=== PATIENT | male | born 1975 | race American Indian/Alaskan Native ===

== ENCOUNTER 2016-07-16 11:16 | Outpatient (CLI) | payer OTHER ==
[2016-07-16 11:52] LABS: BUN/Creatinine Ratio 13.07; Calcium 9.5 mg/dL (8.4-10.2); Chloride 100.1 mmol/L (98-107); Potassium 3.9 mmol/L (3.6-5.0)
== END 2016-07-16 11:17 | disposition home or self-care (01) ==
LOC: LAB 11:16
PROVIDERS: ATTEND Internal Medicine Nephrology
DX: I12.9 Hypertensive chronic kidney disease with stage 1 through stage 4 chronic kidney disease, or unspecified chronic kidney disease (principal); N18.3 Chronic kidney disease, stage 3 (moderate); E87.6 Hypokalemia; R80.9 Proteinuria, unspecified; R35.1 Nocturia; E26.9 Hyperaldosteronism, unspecified
CPT/HCPCS: 36415; 80048

== ENCOUNTER 2016-08-18 11:32 | Emergency (ER) | payer SELFPAY ==
[2016-08-18 12:18] VITALS: BP 191/128
--- NOTE | 2016-08-25 10:27 | ED Elopement Review ---
ED Pt Elopement review - Call Back decision Pt Call Back Decision: No action required
== END 2016-08-18 20:00 | disposition left against medical advice (07) ==
LOC: ED 11:32
DX: R51 Headache (principal); Z53.21 Procedure and treatment not carried out due to patient leaving prior to being seen by health care provider
CPT/HCPCS: 93005; 93010

== ENCOUNTER 2017-09-05 13:00 | Outpatient (CLI) | payer MEDICARE, OTHER ==
[2017-09-05 13:27] LABS: Hematocrit 34.4 % (35.5-45.6); Hemoglobin 11.1 gm/dl (11.8-15.2); Mean Corpuscular HGB Conc 32 % (32-34); Mean Corpuscular Hemoglobin 27 pg (28-32); Mean Corpuscular Volume 85 fl (84-94); Platelet Count 211 K/mm3 (140-440); Red Blood Count 4.07 M/mm3 (3.65-5.03); Red Cell Distribution Width 18.2 % (13.2-15.2)
[2017-09-05 13:40] LABS: Creatinine,Urine 269.2 mg/dL (0.1-20.0); Protein/Creatinine Ratio,Urine 0.32
[2017-09-05 13:42] LABS: Albumin 3.9 g/dL (3.9-5)
[2017-09-05 13:54] LABS: Bacteria,Urine 3+ /HPF (Negative); Bilirubin,Urine NEG (Negative); Blood,Urine NEG (Negative); Color,Urine Yellow (Yellow); Mucus,Urine 2+ /HPF; Sperm,Urine 1+ /HPF (NP)
== END 2017-09-05 13:01 | disposition home or self-care (01) ==
LOC: LAB 13:00
PROVIDERS: ATTEND Internal Medicine Nephrology
DX: I12.9 Hypertensive chronic kidney disease with stage 1 through stage 4 chronic kidney disease, or unspecified chronic kidney disease (principal); N18.3 Chronic kidney disease, stage 3 (moderate); D69.6 Thrombocytopenia, unspecified; J45.909 Unspecified asthma, uncomplicated
CPT/HCPCS: 36415; 80048; 81001; 82040; 82570; 84100; 84156; 85027